=== PATIENT | female | born 1970 | race Caucasian/White ===

== ENCOUNTER 2017-09-02 19:47 | Emergency (ER) | payer OTHER ==
[2017-09-02] MEDS: NITROGLYCERIN 0.4 MG 25 EA TAB SL ONE ×3 (20:05→20:53)
[2017-09-02] MEDS ORDERED: NITROGLYCERIN 0.4 MG 25 EA TAB SL ONE (20:07)
[2017-09-02] MEDS ORDERED: ASPIRIN TABLET 325 MG TAB ONE (20:07)
[2017-09-02] MEDS ORDERED: ATORVASTATIN 20 MG TAB PO ONE (20:09)
[2017-09-02] MEDS ORDERED: METOPROLOL TARTRATE 50 MG TAB PO ONE (20:09)
[2017-09-02] MEDS ORDERED: ASPIRIN TABLET 325 MG TAB PO ONE (20:09)
--- NOTE | 2017-09-02 20:28 | RAD ---
EXAM DESCRIPTION: Chest,1 View CLINICAL HISTORY:47 years Female, chest pain Comparison: None FINDINGS: Lungs: Lungs are clear. No pleural effusion. No pneumothorax. Cardiac and mediastinal silhouette is unremarkable. No acute osseous abnormality. Soft tissues are unremarkable. IMPRESSION: No acute findings. No focal lung consolidation Electronically signed by: Gurpreet Morris MD 09/02/2017 8:26 PM CDT
--- NOTE | 2017-09-02 20:32 | ED.PDOC ---
History of Present Illness - General Chief Complaint: Chest Pain/VA Stated Complaint: chest pain, shortness of breath Time Seen by Provider: 09/02/17 20:08 Source: patient Exam Limitations: no limitations Additional Information: patient comes in today with sudden onset of sharp substernal chest pain that radiates to her back and left shoulder. patient has never had this pain before but it concerned her because it wasn't going away. She did try some Excedrin Migraine at home as well s some baking soda mixed with water to see if it was heartburn. She does not normally have heartburn and denies any abdominal pain or reflux. Patient states she had eaten dinner and then directly afterwards when she was just sitting at rest the pain started on its own. She does have some shortness of breath and deep inspiration does seem to make the pain worse. She has no nausea or vomiting and denies diaphoresis. Patient has a history of mild hypertension but has never been treated with medication. She has no heart history but has seen a patrol captain with last visit several years ago. 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 Patient has never smoked. She has no family history of heart disease in people less than 55 and males and less than 65 and females. Her father did have a heart attack in his 70s. Nitroglycerin given in the emergency room has helped some with the chest pain. Patient does not use drugs and never has. She drinks occasionally, usually 1-2 beers a week. - History of Present Illness Timing/Duration: 1 hour Location: central, back Activities at Onset: none Prior Chest Pain/Cardiac Workup: no prior chest pain Improving Factors: nothing Worsening Factors: other - deep breathing Aspirin Treatment Today: 325 mg x 1, provided by ED Associated Symptoms: shortness of breath Allergies/Adverse Reactions: Allergies Cephalexin [From Keflex] Allergy (Verified 09/02/17 20:05) Home Medications: Ambulatory Orders Venlafaxine HCl [Effexor Tab] 75 mg PO DAILY 09/02/17 Review of Systems - Review of Systems Constitutional: States: no symptoms reported. Denies: chills, diaphoresis, fever, weakness EENTM: States: no symptoms reported Respiratory: States: short of breath. Denies: cough, wheezing Cardiology: States: see HPI, chest pain Gastrointestinal/Abdominal: Denies: diarrhea, nausea, vomiting Genitourinary: States: no symptoms reported Musculoskeletal: States: no symptoms reported Skin: States: no symptoms reported Neurological: States: no symptoms reported Past Medical History (General) - Patient Medical History Hx Seizures: No Hx Stroke: No Hx Dementia: No Hx Asthma: No Hx of COPD: No Hx Cardiac Disorders: No Hx Congestive Heart Failure: No Hx Pacemaker: No Hx Hypertension: No Hx Thyroid Disease: No Hx Diabetes: No Hx Gastroesophageal Reflux: No Hx Renal Disease: No Hx Cancer: No Hx of HIV: No Hx Hepatitis C: No Hx MRSA: No Hx Other - free text: Hyman's syndrome Surgical History: cholecystectomy - Vaccination History Hx Tetanus, Diphtheria Vaccination: No Hx Influenza Vaccination: Yes - Social History Hx Tobacco Use: No Hx Alcohol Use: Yes - social Hx Substance Use: No Hx Substance Use Treatment: No Hx Depression: No Family Medical History - Family History Father Family History: No Known Living Status: Still Living Hx Family Hypertension: Yes Hx Family Stroke: Yes Physical Exam - Physical Exam General Appearance: Anxious, Well Groomed, Well Hydrated Eyes, Ears, Nose, Throat Exam: PERRL/EOMI, normal ENT inspection, TMs normal, pharynx normal Neck: non-tender, full range of motion, supple, normal inspection Respiratory: chest non-tender, lungs clear, normal breath sounds, no respiratory distress, no accessory muscle use Cardiovascular/Chest: normal peripheral pulses, regular rate, rhythm, no edema, no gallop, no JVD, no murmur Peripheral Pulses: radial,right: 2+ Gastrointestinal/Abdominal: normal bowel sounds, non tender, soft, no organomegaly, no pulsatile mass Extremity: normal range of motion Neurologic: normal mood/affect, oriented x 3 Progress - Results/Orders Results/Orders: 09/02/17 20:09 CARDIAC ENZYME GROUP Stat COMPLETE METABOLIC PROFILE Stat 09/02/17 20:12 EKG Assessment ONCE 09/02/17 20:15 D-DIMER,QUANTITATIVE Stat EKG STAT 09/02/17 20:16 CTA Chest [CT] Stat Laboratory Results WBC 8.9 K/mm3 (4.8-10.8) 09/02/17 20:09 RBC 4.88 M/mm3 (4.20-5.40) 09/02/17 20:09 Hgb 14.5 gm/dL (12.0-16.0) 09/02/17 20:09 Hct 42.9 % (36.0-47.0) 09/02/17 20:09 MCV 88.0 fl (81.0-99.0) 09/02/17 20:09 MCH 29.7 pg (27.0-31.0) 09/02/17 20:09 MCHC 33.7 g/dL (33.0-37.0) 09/02/17 20:09 RDW 12.9 % (11.5-14.5) 09/02/17 20:09 Plt Count 268 K/mm3 (130-400) 09/02/17 20:09 MPV 7.6 fl (7.40-10.4) 09/02/17 20:09 Absolute Neuts (auto) 5.30 K/uL (1.8-6.8) 09/02/17 20:09 Absolute Lymphs (auto) 2.70 K/uL (1.0-3.4) 09/02/17 20:09 Absolute Monos (auto) 0.80 K/uL (0.2-0.8) 09/02/17 20:09 Absolute Eos (auto) 0.10 K/uL (0.0-0.4) 09/02/17 20:09 Absolute Basos (auto) 0.00 K/uL (0.0-0.1) 09/02/17 20:09 Neutrophils % 58.9 % (42.0-78.0) 09/02/17 20:09 Lymphocytes % 30.4 % (20.0-50.0) 09/02/17 20:09 Monocytes % 9.0 % (2.0-9.0) 09/02/17 20:09 Eosinophils % 1.2 % (1.0-5.0) 09/02/17 20:09 Basophils % 0.5 % (0.0-2.0) 09/02/17 20:09 09/02/17 20:15 EKG STAT 09/02/17 20:16 CTA Chest [CT] Stat 09/02/17 20:48 KCl 40 Meq/Water For Inj 100Ml [Potassium 40meq in Water 100ml] 40 meq Premix Bag 1 bag IVPB ONCE Laboratory Results WBC 8.9 K/mm3 (4.8-10.8) 09/02/17 20:09 RBC 4.88 M/mm3 (4.20-5.40) 09/02/17 20:09 Hgb 14.5 gm/dL (12.0-16.0) 09/02/17 20: Hct 42.9 % (36.0-47.0) 09/02/17 20:09 MCV 88.0 fl (81.0-99.0) 09/02/17 20: MCH 29.7 pg (27.0-31.0) 09/02/17 20: MCHC 33.7 g/dL (33.0-37.0) 09/02/17 20: RDW 12.9 % (11.5-14.5) 09/02/17 20: Plt Count 268 K/mm3 (130-400) 09/02/17 20: MPV 7.6 fl (7.40-10.4) 09/02/17 20:09 Absolute Neuts (auto) 5.30 K/uL (1.8-6.8) 09/02/17 20:09 Absolute Lymphs (auto) 2.70 K/uL (1.0-3.4) 09/02/17 20:09 Absolute Monos (auto) 0.80 K/uL (0.2-0.8) 09/02/17 20: Absolute Eos (auto) 0.10 K/uL (0.0-0.4) 09/02/17 20: Absolute Basos (auto) 0.00 K/uL (0.0-0.1) 09/02/17 20: Neutrophils % 58.9 % (42.0-78.0) 09/02/17 20: Lymphocytes % 30.4 % (20.0-50.0) 09/02/17 20: Monocytes % 9.0 % (2.0-9.0) 09/02/17 20: Eosinophils % 1.2 % (1.0-5.0) 09/02/17 20: Basophils % 0.5 % (0.0-2.0) 09/02/17 20:09 D-Dimer, Quantitative 264 ng/mL (0-230) H* 09/02/17 20:00 Sodium 135 mmol/L (135-145) 04/04/18 20:00 Potassium 2.9 mmol/L (3.6-5.0) L 09/02/17 20:00 Chloride 100 mmol/L (101-111) L 09/02/17 20:00 Carbon Dioxide 26 mmol/L (21-31) 09/02/17 20:00 Anion Gap 11.9 (12-18) L 09/02/17 20:00 BUN 14 mg/dL (7-18) 09/02/17 20:00 Creatinine 0.63 mg/dL (0.6-1.3) 09/02/17 20:00 BUN/Creatinine Ratio 22.2 (10-20) H 09/02/17 20:00 Random Glucose 145 mg/dL (70-105) H 09/02/17 20:00 Serum Osmolality 273.2 mOsm/L (275-295) L 09/02/17 20:00 Calcium 9.1 mg/dL (8.4-10.2) 09/02/17 20:00 Total Bilirubin 0.5 mg/dL (0.2-1.0) 09/02/17 20:00 AST 30 IU/L (10-42) 09/02/17 20:00 ALT 20 IU/L (10-60) 09/02/17 20:00 Alkaline Phosphatase 82 IU/L (42-121) 09/02/17 20:00 Creatine Kinase 174 IU/L (26-140) H 09/02/17 20:00 CK-MB (CK-2) 2.4 ng/mL (0.0-4.4) 09/02/17 20:00 CK-MB (CK-2) % Not Reportable 09/02/17 20:00 Troponin I < 0.02 ng/mL (0.01-0.05) 09/02/17 20:00 Serum Total Protein 7.3 gm/dL (6.4-8.2) 09/02/17 20:00 Albumin 4.5 g/dl (3.2-5.5) 09/02/17 20:00 Globulin 2.8 gm/dL (2.3-3.5) 09/02/17 20:00 Albumin/Globulin Ratio 1.6 (1.1-1.9) 09/02/17 20:00 - EKG/XRAY/CT EKG: Sinus XRAY: chest Xray Comments: normal CT: circumferential wall thickening of the descending thoracic aorta and left p Departure - Departure Clinical Impression: Vasculitis Chest pain Qualifiers: Chest pain type: unspecified Qualified Code(s): R07.9 - Chest pain, unspecified Disposition: Transfer to Hospital Condition: Fair Departure Forms: ED Discharge - Pt. Copy, Patient Portal Self Enrollment Instructions: DI for Chest Pain Referrals: Sukhwinder Montero MD [Family Provider] - 1-2 Weeks Home Medications: Ambulatory Orders Venlafaxine HCl [Effexor Tab] 75 mg PO DAILY 09/02/17 Comments: call was placed medical secretary receptionist physician who did desire transfer for the patient to her high level of care and cardiology. Dr. Domínguez was consulted from [place] and did accept transfer. Patient has at this time chest pain of uncertain etiology but concern is for vasculitis unstable angina. Patient did receive beta zaki, statin, aspirin, and nitroglycerin as well as morphine. However, blood thinner was held as we were concerned about increased risk with Hyman syndrome of dissection. This was discussed with cardiology and no additional orders were ordered. We will transfer in stable condition.
[2017-09-02] MEDS ORDERED: KCL 40 MEQ/WATER FOR INJ 100ML 40 MEQ in PREMIX BAG 1 BAG IVPB ONE (20:48)
[2017-09-02] MEDS ORDERED: KCL 40 MEQ/WATER FOR INJ 100ML 100 ML IVPB ONE (20:50)
[2017-09-02] MEDS ORDERED: SODIUM CHLORIDE 0.9% 500ML 500 ML IVS ONE (21:11)
[2017-09-02] MEDS ORDERED: MORPHINE SULFATE INJ 10 MG/ML VIAL IV ONE (21:31)
--- NOTE | 2017-09-02 21:34 | CT ---
EXAM DESCRIPTION: CTA Chest CLINICAL HISTORY: 47 years, Female, chest pain/Hyman's syndrome COMPARISON: None TECHNIQUE: Axial images through the chest were performed after the administration of intravenous contrast using a pulmonary embolus protocol. MIPS were performed. This exam was performed according to our departmental dose-optimization program which includes use of Automated Exposure Control, adjustment of the mA and/or kV according to patient size and/or use of iterative reconstruction technique. FINDINGS: No pulmonary embolus is identified. Circumferential thickening of the descending thoracic aortic wall which is mildly asymmetric and causes mild luminal irregularity with no significant narrowing. Wall thickening also in both the proximal aspect of the left subclavian artery at the origin. No pericardial effusion. No pleural effusion. No pneumonia or pneumothorax. Patent central airway. Soft tissues are unremarkable. No acute osseous findings. No acute abnormality within the visualized upper abdomen. IMPRESSION: Circumferential wall thickening of the descending thoracic aorta and left proximal subclavian artery. Findings may be due to nonspecific vasculitis/arteritis. Minimal luminal irregularity with no significant narrowing. No pulmonary embolus. Electronically signed by: Gurpreet Morris MD 09/02/2017 9:33 PM CDT
[2017-09-02 22:23] VITALS: TEMP 98.2; O2SAT 97
[2017-09-02 22:45] VITALS: BP 135/64
== END 2017-09-02 22:45 | disposition short-term general hospital (02) ==
LOC: ER 19:47
DX: I77.6 Arteritis, unspecified (principal); R07.9 Chest pain, unspecified

== ENCOUNTER 2017-09-07 06:02 | Emergency (ER) | payer OTHER ==
--- NOTE | 2017-09-07 06:53 | ED.PDOC ---
History of Present Illness - General Information Source: patient, RN notes reviewed, Vital Signs reviewed Additional Information: 47 YEAR OLD WHITE FEMALE PRESENTS WITH LOWER ABDOMINAL PAIN SHE WAS SEEN HERE LAST WEEK FOR CHEST PAIN SENT TO [facility] WHERE SHE WAS DIAGNOSED WITH INTRAMURAL HEMATOMA OF THE THORACIC AORTA AND HYPERTENSION THE ABDOMINAL PAIN / DISCOMFORT HAD BEEN THERE EVEN WHILE SHE WAS IN THE HOSPITAL BUT SHE DID NOT MAKE A REPORT IT WAS NOT THAT SIGNIFICANT AT THAT TIME SHE HAD GIVEN HERSELF AN [employer] PRIOR TO COMING THINKING IT MAY BE CONSTIPATION BUT VERY LITTLE RELEIF - History of Present Illness Abdominal Pain Onset Location: RLQ, LLQ Pain Radiation: back Quality: moderate, cramping Timing/Duration: 7-24 hours, getting worse Improving Factors: nothing Worsening Factors: nothing <Kya Mcnamara - Last Filed: 09/07/17 06:40> <Abiodun Rockwell - Last Filed: 09/07/17 07:58> - General Chief Complaint: Abdominal Pain Stated Complaint: ab pain, low back pain, nausea, bloated, sleepless Time Seen by Provider: 09/07/17 06:37 Past Medical History (General) - Patient Medical History Hx Seizures: No Hx Stroke: No Hx Dementia: No Hx Asthma: No Hx of COPD: No Hx Cardiac Disorders: No Hx Congestive Heart Failure: No Hx Pacemaker: No Hx Hypertension: Yes Hx Thyroid Disease: No Hx Diabetes: No Hx Gastroesophageal Reflux: No Hx Renal Disease: No Hx Cancer: No Hx of HIV: No Hx Hepatitis C: No Hx MRSA: No Surgical History: cholecystectomy - Vaccination History Hx Tetanus, Diphtheria Vaccination: No Hx Influenza Vaccination: Yes - Social History Hx Tobacco Use: No Hx Alcohol Use: Yes - social Hx Substance Use: No Hx Substance Use Treatment: No Hx Depression: No <Kya Mcnamara - Last Filed: 09/07/17 06:40> Family Medical History - Family History Father Family History: No Known Living Status: Still Living Hx Family Hypertension: Yes Hx Family Stroke: Yes <Kya Mcnamara - Last Filed: 09/07/17 06:40> Physical Exam - Physical Exam General Appearance: Anxious, Well Developed, Well Hydrated Eyes, Ears, Nose, Throat Exam: PERRL/EOMI, normal ENT inspection, TMs normal Neck: non-tender, full range of motion, supple Respiratory: chest non-tender, lungs clear, normal breath sounds Cardiovascular/Chest: normal peripheral pulses, regular rate, rhythm, no edema, no gallop Peripheral Pulses: 3+ Gastrointestinal/Abdominal: normal bowel sounds, non tender, soft, no organomegaly, no pulsatile mass, abnormal bowel sounds Back Exam: normal inspection, no CVA tenderness, no vertebral tenderness Extremity: normal range of motion Neurologic: reformatory attendant II-XII nml as tested, no motor/sensory deficits, alert, normal mood/affect, oriented x 3 Skin Exam: normal color, warm/dry <Kya Mcnamara - Last Filed: 09/07/17 06:40> Progress - Progress Progress: 09/07/17 07:53 pt presents with a few days progressive abd pain. seen at [facility] last week for questionable aortic pathology and set for outpt follow up . 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 moderate discomfort and moderate htn here today. increased ddimer and changed ct of descending aorta compared to last week with extravascation into aorta wall. final reads of cta abd and ct chest without following will be forwarded when obtained. emergent transfer for vascular surgery eval. cardene drip started to titrate to sbp 100-115. pt is aox4 with moderate discomfort currently. transfer for higher level of care. critical care time spent in eval of patient, radiography, pt counseling and arrangement in plan of care and emergent treatment of htn 40 minutes.morphine given to help reduce pain and has been tolerated well. npo. - Results/Orders Results/Orders: Laboratory Tests 09/07/17 09/07/17 09/07/17 06:45 06:45 06:45 WBC 11.1 H RBC 4.29 Hgb 12.6 Hct 37.0 MCV 86.3 MCH 29.4 MCHC 34.1 RDW 12.9 Plt Count 221 MPV 7.4 Absolute Neuts (auto) 8.70 H Absolute Lymphs (auto) 0.90 L Absolute Monos (auto) 1.50 H Absolute Eos (auto) 0.00 Absolute Basos (auto) 0.00 Neutrophils % 78.5 H Lymphocytes % 7.6 L Monocytes % 13.7 H Eosinophils % 0.1 L Basophils % 0.1 PT 15.8 H INR 1.370 PTT (SP) 27.6 D-Dimer, Quantitative Sodium 130 L Potassium 2.5 L Chloride 94 L Carbon Dioxide 24 Anion Gap 14.5 BUN < 5 L Creatinine 0.50 L BUN/Creatinine Ratio 10.0 Random Glucose 125 H Serum Osmolality 259.2 L Lactic Acid Calcium 8.7 Magnesium Total Bilirubin 1.1 H AST 38 ALT 72 H Alkaline Phosphatase 114 Creatine Kinase Serum Total Protein 6.8 Albumin 3.5 Globulin 3.3 Albumin/Globulin Ratio 1.1 Amylase Lipase Serum HCG, Qual 09/07/17 09/07/17 09/07/17 06:45 07:00 07:10 WBC RBC Hgb Hct MCV MCH MCHC RDW Plt Count MPV Absolute Neuts (auto) Absolute Lymphs (auto) Absolute Monos (auto) Absolute Eos (auto) Absolute Basos (auto) Neutrophils % Lymphocytes % Monocytes % Eosinophils % Basophils % PT INR PTT (SP) D-Dimer, Quantitative Sodium Potassium Chloride Carbon Dioxide Anion Gap BUN Creatinine BUN/Creatinine Ratio Random Glucose Serum Osmolality Lactic Acid 0.6 Calcium Magnesium 1.8 Total Bilirubin AST ALT Alkaline Phosphatase Creatine Kinase 133 Serum Total Protein Albumin Globulin Albumin/Globulin Ratio Amylase 33 Lipase 18 L Serum HCG, Qual 09/07/17 09/07/17 07:10 07:12 WBC RBC Hgb Hct MCV MCH MCHC RDW Plt Count MPV Absolute Neuts (auto) Absolute Lymphs (auto) Absolute Monos (auto) Absolute Eos (auto) Absolute Basos (auto) Neutrophils % Lymphocytes % Monocytes % Eosinophils % Basophils % PT INR PTT (SP) D-Dimer, Quantitative 1115 H* Sodium Potassium Chloride Carbon Dioxide Anion Gap BUN Creatinine BUN/Creatinine Ratio Random Glucose Serum Osmolality Lactic Acid Calcium Magnesium Total Bilirubin AST ALT Alkaline Phosphatase Creatine Kinase Serum Total Protein Albumin Globulin Albumin/Globulin Ratio Amylase Lipase Serum HCG, Qual Negative prelim cta abd: progressed aortic dissection above renal arteries. final read pending. ct chest withour fdor comparison last week report pending and will be forwarded. <Abiodun Rockwell - Last Filed: 09/07/17 07:58> Departure <Kya Mcnamara - Last Filed: 09/07/17 06:40> <Abiodun Rockwell - Last Filed: 09/07/17 07:58> - Departure Clinical Impression: Dissection of aorta, thoracoabdominal Disposition: Transfer to Hospital Condition: Serious Home Medications: Ambulatory Orders Venlafaxine HCl [Effexor Tab] 75 mg PO DAILY 09/02/17 Metoprolol Succinate [Metoprolol Succinate ER] 50 mg PO 09/07/17 Transfer to Outside Facility - Transfer Information Accepting Provider:: dr younger Accepting Facility: [facility] Reason for Transfer: required specialist not available <Abiodun Rockwell - Last Filed: 09/07/17 07:58>
[2017-09-07] MEDS: fentaNYL CITRATE INJ 50 MCG/ML AMP IV ONE ×2 (07:02→07:06)
[2017-09-07] MEDS ORDERED: POTASSIUM CHLORIDE ELIXIR 20 MEQ/15 ML UD PO ONE (07:08)
[2017-09-07] MEDS ORDERED: POTASSIUM CHLORIDE 20mEq 10ML VIAL IVPB ONE (07:09)
[2017-09-07] MEDS ORDERED: MORPHINE SULFATE INJ 10 MG/ML VIAL IV ONE (07:09)
[2017-09-07] MEDS ORDERED: niCARdipine HCL 2.5 MG/ML AMP IVPB ONE (07:43)
[2017-09-07] MEDS ORDERED: SODIUM CHLORIDE 0.9% 250ML 250 ML ONE (07:45)
--- NOTE | 2017-09-07 07:46 | CT ---
EXAM DESCRIPTION: CT angiogram abdomen with contrast CLINICAL HISTORY: Abdomen pain. Assess for mesenteric stenosis COMPARISON: CT angiogram chest 09/02/2017 TECHNIQUE: Spiral CT with multiplanar reformatted images. Intravenous iodinated nonionic contrast This exam was performed according to our departmental dose-optimization program, which includes automated exposure control, adjustment of the mA and/or kV according to patient size and/or use of iterative reconstruction technique. FINDINGS: Aortic dissection with active bleeding. The lower thoracic aorta and upper abdominal aorta demonstrates sequela of dissection with circumferential intermediate to low density as well as false lumen contrast, consistent with active bleeding. The contrast-enhanced lumen of the descending thoracic aorta and upper abdominal aorta are narrowed as a result. The maximum transverse dimension of the descending thoracic aorta is 2.9 cm with the contrast enhancing lumen 1.6 cm Dissection seen on previous CT chest from 09/02/2017. This has worsened. The previous study did not show contrast outside of the true lumen at that time Narrowing of the upper abdominal aorta, and origin of the celiac trunk. The dissection extends down to the renal arteries and superior mesenteric artery without luminal narrowing of these. No infrarenal abdominal aorta or iliac vessel narrowing IMPRESSION: Sequela of thoracic aortic dissection extending down to the SMA/renal arteries. Active bleeding into the false lumen. These findings were discussed with Dr. Rockwell. Emergent vascular surgical consultation was suggested Electronically signed by: Branden Lund MD 09/07/2017 7:45 AM CDT
[2017-09-07] MEDS ORDERED: KCL 20MEQ/WATER FOR INJ 100ML 100 ML IVPB ONE (08:08)
--- NOTE | 2017-09-07 08:13 | CT ---
EXAM DESCRIPTION: Chest w/o Contrast CLINICAL HISTORY: 47 years, Female, elevated d dimer COMPARISON: Current CTA of the abdomen and previous CTA of the chest September 02, 2017 TECHNIQUE: Thin-section noncontrast axial CT images are obtained according to our protocol. Reconstructed MPR images are created and reviewed as well. This exam was performed according to our departmental dose-optimization program, which includes automated exposure control, adjustment of the mA and/or kV according to patient size and/or use of iterative reconstruction technique. FINDINGS: Residual IV contrast enhancement of the cardiac chambers and vascular structures demonstrates a type B aortic dissection beginning at the posterior aortic arch and extending into the abdomen. Low-density contrast extending into the false lumen is noted. A small layering left pleural effusion is apparent. Excreted contrast into the left kidney collecting system at the inferior extent of the scan is noted. The right lung is essentially clear and the left lung demonstrates minimal compressive atelectasis at the posterior costophrenic angle. No pericardial effusion is seen. The maximal diameter of the descending thoracic aorta including the false lumen is 3.8 cm. Satisfactory evaluation of the pulmonary vascularity for pulmonary embolus with the low-density residual IV contrast is insufficient. Below the diaphragm the gallbladder is surgically absent. IMPRESSION: 1. Abnormal descending thoracic aorta consistent with a type B thoracic aortic dissection with some residual contrast extending into the false lumen and a maximal diameter of the descending thoracic aorta 3.8 cm. 2. Small layering left pleural effusion with minimal compressive atelectasis 3. Results discussed with Dr. Rockwell at the time of interpretation. Electronically signed by: Branden Irizarry MD 09/07/2017 8:10 AM CDT
[2017-09-07] MEDS ORDERED: PROMETHAZINE HCL INJ 25 MG/ML VIAL IVPB ONE (08:17)
[2017-09-07] MEDS ORDERED: SODIUM CHLORIDE 0.9% 50ML 50 ML ONE (08:21)
[2017-09-07] MEDS ORDERED: niCARdipine HCL 25 MG in SODIUM CHLORIDE 0.9% 250ML 240 ML IVPB SCH (08:21)
[2017-09-07] MEDS ORDERED: METOPROLOL TARTRATE INJ 5 MG/5 ML VIAL IV ONE (08:27)
[2017-09-07] MEDS: SODIUM CHLORIDE 0.9% 1000ML 500 ML IVS ONE ×2 (08:30→08:58)
[2017-09-07 08:48] VITALS: TEMP 100; O2SAT 98
[2017-09-07] MEDS ORDERED: KCL 20MEQ/WATER FOR INJ 100ML 20 MEQ in PREMIX BAG 1 BAG IVPB ONE (08:50)
[2017-09-07 08:57] VITALS: BP 151/89
== END 2017-09-07 08:25 | disposition short-term general hospital (02) ==
LOC: ER 06:02
DX: I71.03 Dissection of thoracoabdominal aorta (principal); I10 Essential (primary) hypertension
CPT/HCPCS: 36415; 71250; 74175; 80053; 81001; 82150; 82550; 82553; 83605; 83690; 83735; 84443; 84484; 84703; 85025; 85379; 85610; 85730; 87040; A4216; J2550; J3480; J7050

== ENCOUNTER → 2017-10-20 | Outpatient (CLI) | payer OTHER | LOC: YCFC.O 16:22 | DX: I10 Essential (primary) hypertension (principal) ==

== ENCOUNTER → 2018-02-05 | Outpatient (CLI) | payer OTHER | LOC: YCFC.O 08:14 | PROVIDERS: ATTEND Family Medicine | DX: Z13.220 Encounter for screening for lipoid disorders (principal); I10 Essential (primary) hypertension ==

== ENCOUNTER → 2018-02-24 | Outpatient (CLI) | payer OTHER | LOC: LAB.O 08:25 | PROVIDERS: ATTEND Family Medicine | DX: I10 Essential (primary) hypertension (principal) ==

== ENCOUNTER → 2018-04-28 | Outpatient (CLI) | payer OTHER | LOC: LAB.O 08:06 | PROVIDERS: ATTEND Internal Medicine Cardiovascular Disease | DX: E78.5 Hyperlipidemia, unspecified (principal) ==

== ENCOUNTER → 2018-12-15 | Outpatient (CLI) | payer BC ==
--- NOTE | 2018-12-16 11:07 | MAM ---
EXAM DESCRIPTION: 3D Screening BILATERAL : Digital Mammography. CLINICAL HISTORY: 48 years Female SCREEN . No complaints. No personal history of breast cancer. Mother with breast cancer age 75. Remote family history of breast cancer. No childbirth. Postmenopausal. HRT 5 or more years ago. Lifetime risk of developing breast cancer (Tyrer-Cuzick model)(%): 15.7. COMPARISON: 2-D digital screening bilateral mammography 03/21/2014. TECHNIQUE: Bilateral CC and MLO projection full-field images, digital tomosynthesis mammographic technique. Bilateral digital 2-D full-field MLO images. CAD not available for tomosynthesis or 2-D images. FINDINGS: The breast parenchymal density pattern is: Scattered areas of fibroglandular density. No skin thickening or nipple retraction. Bilateral solitary microcalcifications. Intramammary lymph node right axillary tail stable. No new focal, stellate mass or density, focal asymmetry , and no suspicious microcalcifications bilaterally. Stable mammograms compared to prior study. Taking into account, differences in mammographic technique. IMPRESSION: Benign exam. BIRAD CATEGORY: 2 BENIGN FINDINGS. RECOMMENDATIONS: FOLLOW UP: Routine digital bilateral mammographic screening, one year interval from November 2018. Written communication explaining the IMPRESSION and follow-up, will be mailed to the patient and referring health care provider. The FINDINGS and the FOLLOW-UP plan were reviewed in person with the patient after the examination. According to the [employer], yearly mammograms are recommended starting at age 40 and continuing as long as a woman is in good health. Any breast change noted on a breast self-exam should be reported promptly to the patient's healthcare provider. Breast MRI is recommended for women with an approximately 20-25% or greater lifetime risk of breast cancer, including women with a strong family history of breast or ovarian cancer and women who have been treated for Hodgkin's disease. A negative mammographic report should not delay tissue diagnosis in patients with significant clinical history or physical findings. Extremely dense breast tissue limits the sensitivity of digital mammography. Electronically signed by: Remy Mast MD 12/16/2018 11:05 AM CDT
== END ==
LOC: MAMMO 16:30
PROVIDERS: ATTEND Family Medicine
DX: Z12.31 Encounter for screening mammogram for malignant neoplasm of breast (principal)

== ENCOUNTER → 2019-11-21 | Outpatient (CLI) | payer BC | LOC: YCFC.O 08:22 | PROVIDERS: ATTEND Family Medicine | DX: I10 Essential (primary) hypertension (principal); E78.5 Hyperlipidemia, unspecified; G47.00 Insomnia, unspecified; F41.8 Other specified anxiety disorders ==

== ENCOUNTER → 2020-02-03 | Outpatient (CLI) | payer BC ==
--- NOTE | 2020-02-07 16:47 | MAM ---
EXAM DESCRIPTION: 3D Screening BILATERAL : Digital Mammography. CLINICAL HISTORY: 49 years Female SCREENING no complaints. Mother with breast cancer at age 70. No childbirth. Postmenopausal age unknown. Currently on HRT. Lifetime risk of developing breast cancer (Tyrer-Cuzick model)(%): 15.5. COMPARISON: Bilateral screening digital breast tomosynthesis November 2018. TECHNIQUE: Bilateral CC and MLO projection full-field images, digital tomosynthesis mammographic technique. Bilateral digital 2-D full-field MLO images. CAD available for 2-D images. FINDINGS: The breast parenchymal density pattern is: Heterogeneously dense breast tissue, which may obscure small masses. No skin thickening or nipple retraction. Solitary microcalcifications. No new focal, stellate mass or density, focal asymmetry , and no suspicious microcalcifications bilaterally. Stable mammograms compared to prior study. IMPRESSION: Benign exam. BIRAD CATEGORY: 2 BENIGN FINDINGS. RECOMMENDATIONS: FOLLOW UP: Routine digital bilateral mammographic screening, one year interval from January 2020. Written communication explaining the IMPRESSION and follow-up, will be mailed to the patient and referring health care provider. According to the [employer], yearly mammograms are recommended starting at age 40 and continuing as long as a woman is in good health. Any breast change noted on a breast self-exam should be reported promptly to the patient's healthcare provider. Breast MRI is recommended for women with an approximately 20-25% or greater lifetime risk of breast cancer, including women with a strong family history of breast or ovarian cancer and women who have been treated for Hodgkin's disease. A negative mammographic report should not delay tissue diagnosis in patients with significant clinical history or physical findings. Extremely dense breast tissue limits the sensitivity of digital mammography. Electronically signed by: Remy Mast MD 02/07/2020 4:45 PM CDT
== END ==
LOC: YCFC.O 14:14
PROVIDERS: ATTEND Family Medicine
DX: Z12.31 Encounter for screening mammogram for malignant neoplasm of breast (principal); N39.0 Urinary tract infection, site not specified